=== PATIENT | female | born 1970 | race Caucasian/White ===

== ENCOUNTER 2018-09-06 18:08 | Emergency (ER) | payer BC ==
[~2018-09-06] VITALS: Ht 154.9 cm; Wt 54.4 kg
[2018-09-06 18:08] VITALS: BP_SYST 156
[2018-09-06] MEDS ORDERED: LORazepam 2 MG/ML VIAL (FOR ER USE) IM ONE (18:15)
[2018-09-06 19:05] LABS: INR 0.9 (0.8-1.2); PROTHROMBIN TIME 9.3 SECS (9.5-12.5)
[2018-09-06 19:06] LABS: POTASSIUM 4.1 mmol/L (3.5-5.1)
[2018-09-06 19:07] LABS: CALCIUM 9.3 mg/dL (8.4-11.0); CREATININE 0.76 mg/dL (0.55-1.30); TOTAL BILIRUBIN 0.2 mg/dL (0.0-1.0)
[2018-09-06 19:13] LABS: ALBUMIN 4.3 g/dL (3.4-4.8)
[2018-09-06 19:19] LABS: HEMATOCRIT 44.2 % (36-48); HEMOGLOBIN 14.9 g/dL (12.0-16.0); MEAN CORPUSCULAR HEMOGLOBIN 34 pg (27-31); MEAN CORPUSCULAR HGB CONC 34 % (32-36); MEAN CORPUSCULAR VOLUME 99 fL (79.0-98.0); RED BLOOD CELL COUNT(AUTO) 4.45 MIL/uL (4.2-6.2); RED CELL DISTRIBUTION WIDTH 14.6 % (9.0-15.0); WHITE BLOOD COUNT (AUTO) 4.8 K/uL (4.8-10.8)
[2018-09-06 19:20] LABS: PLATELET COUNT (AUTO) 393 K/uL (130-430)
[2018-09-06 19:31] LABS: ATYPICAL LYMPHOCYTES % 0 % (0-0); BAND % (MANUAL) 0 % (0-6); BASOPHILS % (MANUAL) 0 % (0-2); EOSINOPHILS % (MANUAL) 2 % (0-7); LYMPHOCYTES % (MANUAL) 47 % (20-46); MONOCYTES % (MANUAL) 3 % (0-11)
[2018-09-06 20:19] LABS: BILIRUBIN,URINE NEGATIVE (NEGATIVE); BLOOD, URINE NEGATIVE (NEGATIVE); CLARITY/URINE CLEAR (CLEAR); COLOR,URINE YELLOW (YELLOW); GLUCOSE,URINE NEGATIVE (NEGATIVE); KETONES,URINE NEGATIVE (NEGATIVE); LEUKOCYTE ESTERASE ,URINE NEGATIVE (NEGATIVE); NITRITE, URINE NEGATIVE (NEGATIVE); PH,URINE 7.5 (5.0-8.0); PROTEIN URINE NEGATIVE (NEGATIVE); UROBILINOGEN,URINE 0.2 (0.2-1.0)
[2018-09-06 20:39] LABS: BARBITURATE, URINE NEGATIVE (NEG <=200); BENZODIAZEPINE, URINE NEGATIVE (NEG <=150); CANNABINOID, URINE NEGATIVE (NEG <=50); COCAINE, URINE NEGATIVE (NEG <=150); METHAMPHETAMINES SCREEN,URINE NEGATIVE (NEG <=500); OPIATE, URINE NEGATIVE (NEG <=100); PHENCYCLIDINE SCREEN,URINE NEGATIVE (NEG <=25); UR TRICYCLIC ANTIDEPRESSANTS NEGATIVE (NEG <=300); URINE AMPHETAMINE NEGATIVE (NEG <=500); URINE METHADONE NEGATIVE (NEG <=200); URINE OXYCODONE SCREEN NEGATIVE (NEG <=100); URINE PROPOXYPHENE SCREEN NEGATIVE (NEG <=300)
[2018-09-06 20:57] VITALS: BP_SYST 131
== END 2018-09-06 20:56 ==
LOC: SED 18:08
DX: F10.10 Alcohol abuse, uncomplicated (principal); F32.9 Major depressive disorder, single episode, unspecified; Z88.8 Allergy status to other drugs, medicaments and biological substances; Z90.710 Acquired absence of both cervix and uterus; Y90.8 Blood alcohol level of 240 mg/100 ml or more
CPT/HCPCS: 36415; 70450; 71045; 80053; 80307; 81003; 85007; 85027; 85610; 93005; 96372; 99284; G0482; J2060

== ENCOUNTER 2019-09-24 15:57 | Emergency (ER) | payer BC ==
[~2019-09-24] VITALS: Ht 154.9 cm; Wt 59.9 kg
[2019-09-24 16:36] VITALS: BP_SYST 124
--- NOTE | 2019-09-24 18:05 | NUR ---
Patient to ER bed 8 to gown for evaluation. Side rails up.
--- NOTE | 2019-09-24 18:08 | NUR ---
Kyleigh lemon in ED - 09/24/19 at 1906 by [email or web address] Shun SCHMID SYSTEM DISPATCHER at bedside examining patient.
--- NOTE | 2019-09-24 18:12 | NUR ---
Note ion in EDM - 09/24/19 at 1907 by [email or web address] PT BIB VIA BLS. PT WAS SPEAKING W/ HER FRIEND OF THE COURT WHEN HE CALLED 911. PT HAD 9/10 H/A ALONG W/ VOMITING. WILL CONTINUE TO MONITOR
--- NOTE | 2019-09-24 18:12 | NUR ---
PT BIB VIA BLS. PT WAS SPEAKING W/ HER JUICE TESTER WHEN HE CALLED 911. PT HAD 9/10 H/A ALONG W/ VOMITING. WILL CONTINUE TO MONITOR
--- NOTE | 2019-09-24 19:07 | NUR ---
waiting to be seen by
--- NOTE | 2019-09-24 19:25 | NUR ---
report given to Raudel MULLIGAN. pt is in stable condition.
--- NOTE | 2019-09-24 19:30 | NUR ---
AWAKE, ALERT, ORIENTED. PT STATES SHE WAS TALKING TO HER OENOLOGIST AND SHE GOT AN INTENSE HEADACHE. HER OENOLOGIST CALLED 911. STATING HER HEADACHE HAS SUBSIDED AT THIS TIME, A 3/10 IN PAIN SCALE.
[2019-09-24] MEDS ORDERED: NACL 0.9% 1,000 ML IV ONE (19:52)
[2019-09-24] MEDS ORDERED: MORPHINE 4 MG/ML INJ. SYRINGE IVP ONE (20:00)
[2019-09-24] MEDS ORDERED: PANTOPRAZOLE SODIUM 40 MG/VIAL (PROTONIX) IVP ONE (20:00)
--- NOTE | 2019-09-24 20:00 | NUR ---
ER at bedside examining patient.
[2019-09-24 20:37] LABS: BASOPHILS # (AUTO) 0.1 K/uL (0.0-0.2); BASOPHILS % (AUTO) 0.8 % (0.0-2.0); EOSINOPHILS # (AUTO) 0.1 K/uL (0.0-0.4); EOSINOPHILS % (AUTO) 1.2 % (0.0-4.0); HEMATOCRIT 42.2 % (36-48); HEMOGLOBIN 13.9 g/dL (12.0-16.0); LYMPHOCYTES # (AUTO) 2.5 K/uL (1.0-5.5); LYMPHOCYTES % (AUTO) 38.8 % (20.5-51.5); MEAN CORPUSCULAR HEMOGLOBIN 31 pg (27-31); MEAN CORPUSCULAR HGB CONC 33 % (32-36); MEAN CORPUSCULAR VOLUME 95 fL (79.0-98.0); MONOCYTES # (AUTO) 0.3 K/uL (0.0-1.0); MONOCYTES % (AUTO) 4.1 % (1.7-9.3); NEUTROPHILS # (AUTO) 3.5 K/uL (1.8-7.7); NEUTROPHILS % (AUTO) 55.1 % (40.0-70.0); PLATELET COUNT (AUTO) 320 K/uL (130-430); RED BLOOD CELL COUNT(AUTO) 4.43 MIL/uL (4.2-6.2); WHITE BLOOD COUNT (AUTO) 6.3 K/uL (4.8-10.8)
[2019-09-24 20:46] LABS: CALCIUM 9.2 mg/dL (8.4-11.0); CREATININE 0.8 mg/dL (0.55-1.30); POTASSIUM 4.4 mmol/L (3.5-5.1)
[2019-09-24 20:50] LABS: INR 0.9 (0.8-1.2); PROTHROMBIN TIME 9.4 SECS (9.5-12.5)
[2019-09-24 20:52] LABS: ALBUMIN 4.2 g/dL (3.4-4.8); TOTAL BILIRUBIN 0.2 mg/dL (0.0-1.0)
--- NOTE | 2019-09-24 22:39 | NUR ---
Patient given written and verbal discharge instructions and verbalizes understanding. ER MD discussed with patient the results and treatment provided. Patient in stable condition. ID arm band removed. IV catheter removed intact and dressing applied, no active bleeding. No Rx given. Patient educated on pain management and to follow up with PMD. Pain Scale 2/10. Opportunity for questions provided and answered. Medication side effect fact sheet provided.
[2019-09-24 22:40] VITALS: BP_SYST 128
== END 2019-09-24 22:40 | disposition home or self-care (01) ==
LOC: SED 15:57
DX: R51 Headache (principal); K92.0 Hematemesis; J45.909 Unspecified asthma, uncomplicated; I10 Essential (primary) hypertension; K21.9 Gastro-esophageal reflux disease without esophagitis; Z88.8 Allergy status to other drugs, medicaments and biological substances
CPT/HCPCS: 36415; 71045; 80053; 83690; 85025; 85610; 85730; 93005; 96361; 96374; 96375; 99284; C9113; G0482; J2270; J7030

== ENCOUNTER 2021-04-19 20:21 | Emergency (ER) | payer BC ==
[~2021-04-19] VITALS: Ht 154.9 cm; Wt 59.9 kg
[2021-04-19 20:21] VITALS: BP_SYST 155
[2021-04-19] MEDS ORDERED: LIB25 PO (21:13)
[2021-04-19 21:16] VITALS: BP_SYST 132
== END 2021-04-19 21:16 ==
LOC: SED 20:21
DX: S20.212A Contusion of left front wall of thorax, initial encounter (principal); M25.512 Pain in left shoulder; F10.239 Alcohol dependence with withdrawal, unspecified; I10 Essential (primary) hypertension; K21.9 Gastro-esophageal reflux disease without esophagitis; J45.909 Unspecified asthma, uncomplicated; Z88.8 Allergy status to other drugs, medicaments and biological substances; V49.49XA Driver injured in collision with other motor vehicles in traffic accident, initial encounter; Y93.89 Activity, other specified; Y92.89 Other specified places as the place of occurrence of the external cause; Y99.8 Other external cause status; Y90.9 Presence of alcohol in blood, level not specified
CPT/HCPCS: 71045; 93005; 99283